=== PATIENT | male | born 1955 | race Caucasian/White ===

== ENCOUNTER 2017-03-28 14:07 | Observation (INO) ==
[2017-03-28] MEDS ORDERED: NITROGLYCERIN 0.4 MG SUBLINGUAL TABLET SL PRN ×2 (14:32→14:47)
[2017-03-28] MEDS ORDERED: SALINE FLUSH 10ml SYRINGE IVF PRN (14:32)
[2017-03-28] MEDS ORDERED: ASPIRIN 81 MG CHEWABLE TABLET PO ONE ×3 (14:32→14:47)
[2017-03-28] MEDS ORDERED: NS 1,000 ML IV ONE (14:47)
--- NOTE | 2017-03-28 15:04 | XRay Report ---
INDICATION: Upper abdominal and chest pain today PROCEDURE: CHEST 2-VIEWS UPRIGHT (PA & LAT) Encounter: Initial COMPARISON: March 03, 2009 FINDINGS: The lungs are clear without evidence of focal abnormal airspace opacity. There is no pleural effusion or pneumothorax. The heart size, mediastinal contours and pulmonary vascularity are stable. IMPRESSION: Stable chest without acute cardiopulmonary disease. .
[2017-03-28] MEDS ORDERED: HEPARIN 1,000unit/ml INJECTION 10ml IV ONE (15:09)
[2017-03-28] MEDS ORDERED: HEPARIN DRIP 20,000 UNIT/500 ML BAG IV SCH (15:11)
--- NOTE | 2017-03-28 15:20 | Emergency Department Report ---
Chest Pain HPI - General Chief Complaint: Chest Pain Stated Complaint: Cp Time Seen by Provider: 03/28/17 14:20 - History of Present Illness HPI narrative: 61-year-old gentleman presents with chest pain. Patient had onset of chest pain this morning after eating. He did change dosage on Entresto last night. He has a life vest in place due to poor ejection fraction. His initial cardiac event was greater than 20 years ago with an GA. He is being followed by Dr. Jackman for this. He's had some slight diaphoresis this morning, no actual shortness of breath. Chest pain as 6-8 out of 10 midsternal radiating in a band across the front of his chest. He is not certain if this is similar pain to his initial cardiac event. No nausea vomiting. - Related Data Home Medications Medication Instructions Recorded Confirmed Potassium Chloride 20 meq PO DAILY #0 06/21/10 03/28/17 Cyclobenzaprine HCl 10 mg PO PRN PRN #0 06/28/10 03/09/17 Furosemide 40 mg PO BID #0 06/29/10 03/12/17 Aspirin [Aspirin EC] 81 mg PO DAILY 03/09/17 03/12/17 Carvedilol [Coreg] 1 tab PO BIDWM 03/09/17 03/12/17 Metformin [Glucophage] 500 mg PO BID 03/09/17 03/28/17 SACUBITRIL/VALSARTAN 24/26mg 2 tab PO BID 03/09/17 03/28/17 [ENTRESTO 24/26mg] Nitroglycerin 0.4 mg PO Q5M PRN 03/28/17 03/28/17 Allergies Allergy/AdvReac Type Severity Reaction Status Date / Time amlodipine [From [facility]] Allergy Itching Verified 03/28/17 15:18 Review of Systems All systems: reviewed and negative except as stated PFSH Patient Stated Medical History Dental Problems Yes: partial Angina Yes Hypertension Yes Myocardial Infarction Yes: Diabetes Mellitus Type 2 Yes Osteoarthritis Yes Depression Yes: r/t heart attack - Social History Smoking status: Former smoker Physical Exam - Limitations Limitations: no limitations - General General appearance: alert, in no apparent distress - Normal Exams: Head:: Normocephalic without trauma Chest/Respirations:: Clear all [place]ley, with good airflow, and symmetry bilaterally Cardiovascular:: Regular rate and rhythm, without murmur or gallop, Pulses 2+ all extremities, capillary refill, <2 seconds all extremities Abdomen:: Bowel sounds positive, soft, non-tender, non-distended, no hepatosplenomegaly, masses or bruits noted Neurological:: Patient is alert, and oriented, cranial nerves, motor/sensory/ cerebellar, exams w/o gross deficits, to observation Psychiatric:: Patient exhibits, appropriate attention, emotion and affect Course Vital Signs Temperature 97.8 F 03/28/17 14:09 Pulse Rate 59 L 03/28/17 14:09 Respiratory Rate 18 03/28/17 14:09 Blood Pressure 119/64 03/28/17 14:09 Pulse Oximetry 97 03/28/17 14:09 Temperature 97.8 F 03/28/17 14:09 Pulse Rate 59 L 03/28/17 14:09 Respiratory Rate 18 03/28/17 14:09 Blood Pressure 119/64 03/28/17 14:09 Pulse Oximetry 97 03/28/17 14:09 Chest Pain - MDM Narrative Medical decision making narrative: CBC CMP appropriate. Troponin negative. EKG is questionable, Dr. Jackman reviewed the EKG and would like patient placed in observation with heparin drip to be followed and reevaluated. 60 units per kilogram initial bolus of heparin followed by 12 units per kilogram per hour. Repeat troponin is ordered. Patient stable at time of transfer. He did have aspirin 81 mg 4, nitroglycerin 1. Sublingual - Medical Records Data Attestation: I reviewed the patient's medical records. - Lab Data Attestation: I reviewed the patient's lab results. Result diagrams: 03/28/17 14:37 03/28/17 14:37 Lab Results 03/28/17 03/28/17 03/28/17 Range/Units 14:37 14:37 14:37 WBC 6.5 (4.5-11.0) T/MM3 RBC 4.39 L (4.50-5.90) M/MM3 Hgb 14.1 (13.5-17.5) GM/DL Hct 40.1 L (41-53) % MCV 91.3 (80-100) UM3 MCH 32.1 (26-34) UUG MCHC 35.2 (31-37) GM/DL RDW Std Deviation 42.0 (36.9-50.2) FL Plt Count 197 (130-400) T/MM3 MPV 9.9 (9.4-12.4) UM3 Immature Gran % (Auto) 0.3 (0.0-0.5) % Neut % (Auto) 48.5 (33-66) % Lymph % (Auto) 36.7 (23-45) % [place] % (Auto) 9.9 H (0-9.0) % Eos % (Auto) 3.2 (0-4) % Baso % (Auto) 1.4 (0-2) % Neut # 3.2 (1.8-7.7) T/MM3 Lymph # 2.4 (1-4.8) T/MM3 [place] # 0.7 (0-0.8) T/MM3 Eos # 0.2 (0-0.5) T/MM3 Baso # 0.1 (0-0.2) T/MM3 Abs Immat Gran (auto) 0.02 (0.00-0.03) T/MM3 Turbidity < 20 (0-20) Sodium 146 H (134-144) MEQ/L Potassium 4.0 (3.6-5) MEQ/L Chloride 106 (98-107) MEQ/L Carbon Dioxide 28 (22-30) MEQ/L Anion Gap 12 (5-15) MEQ/L BUN 13.0 (9-20) MG/DL Creatinine 0.7 L (0.8-1.5) MG/DL GFR Calculation 115 BUN/Creatinine Ratio 19 (6-26) RATIO Glucose 121 H (75-110) MG/DL Calculated Osmolality 282 H (261-280) MOSM/KG Calcium 9.6 (8.4-10.2) MG/DL Icterus Index < 2 (0-7) Troponin I < 0.012 Cancelled (0-0.12) ng/ml B-Natriuretic Peptide 117 Cancelled (0-175) pg/mL Lipase 522 H (23-300) U/L Specimen Hemolysis < 15 Cancelled (0-25) Digoxin < 0.4 L (0.8-2.0) NG/ML - Radiology Data Attestation: I reviewed the patient's radiology results. Disposition Clinical Impression: Chest pain, Ejection fraction < 50% Disposition: 02 To [facility] Condition: Stable Prescriptions: No Action Furosemide 40 mg PO BID #0 Aspirin [Aspirin EC] 81 mg PO DAILY Carvedilol [Coreg] 1 tab PO BIDWM Potassium Chloride 20 meq PO DAILY #0 Cyclobenzaprine HCl 10 mg PO PRN PRN #0 PRN Reason: Muscle Spasm Metformin [Glucophage] 500 mg PO BID SACUBITRIL/VALSARTAN 24/26mg [ENTRESTO 24/26mg] 2 tab PO BID Nitroglycerin 0.4 mg PO Q5M PRN PRN Reason: Chest Pain Referrals: Leonela Mccain DO [Family Provider] - Time of Disposition: 15:26 - Seen By: physician
[2017-03-28 16:07] VITALS: BMI 30.3
--- NOTE | 2017-03-28 17:12 | Cardiology History & Physical ---
History of Present Illness Chief complaint: chest pain HPI: Gary is a 61-year-old gentleman who is well known to Dr. Jackman with a history CAD with recent heart cath, Dilated cardiomyopathy with EF of no more than 20%, HTN, HLD and DM, type II who presented with chest pain. He reported onset of chest pain this morning after eating. He's had some slight diaphoresis this morning, no actual shortness of breath. Chest pain as 6-8 out of 10 midsternal radiating in a band across the front of his chest. He did change dosage on Entresto last night. He has a life vest in place. His initial cardiac event was greater than 20 years ago with an OH. He is being followed by Dr. Jackman for this. He is not certain if this is similar pain to his initial cardiac event. No nausea/ vomiting. Review of Systems - Constitutional Constitutional: Absent: chills, fever(s), weakness - EENMT Eyes: Absent: change in vision Balance: Absent: vertigo Mouth/Throat: Absent: sore throat - Cardiovascular Cardiovascular: Present: chest pain, dyspnea on exertion. Absent: palpitations , syncope - Respiratory Respiratory: Present: dyspnea - Gastrointestinal Gastrointestinal: Absent: diarrhea, nausea, vomiting - Genitourinary Genitourinary: Absent: dysuria - Integumentary/Breasts Integumentary: Absent: rash - Neurological Neurological: Absent: dizziness PFSH Patient Stated Medical History Dental Problems Yes: partial Angina Yes Hypertension Yes Myocardial Infarction Yes: Diabetes Mellitus Type 2 Yes Osteoarthritis Yes Depression Yes: r/t heart attack Systolic HF Yes: EF 20% COPD Yes Surgical History: Hernia repair Family History: Brother - CAD, OH Mother - OH Sister - OH - Social History Smoking status: Former smoker Substance use type: does not use Alcohol intake frequency: a few times a week Household members: spouse Current occupational status: disabled Current residence: Apartment/Private Home Medications Home Medications Medication Instructions Recorded Confirmed Type Potassium Chloride 20 meq PO DAILY #0 06/21/10 03/28/17 History Furosemide 40 mg PO BID #0 06/29/10 03/28/17 History Aspirin [Aspirin EC] 81 mg PO DAILY 03/09/17 03/28/17 History Carvedilol [Coreg] 25 mg PO BIDWM 03/09/17 03/28/17 History Metformin [Glucophage] 500 mg PO BID 03/09/17 03/28/17 History SACUBITRIL/VALSARTAN 24/26mg 2 tab PO BID 03/09/17 03/28/17 History [ENTRESTO 24/26mg] Atorvastatin Calcium 80 mg PO HS 03/28/17 03/28/17 History Nitroglycerin 0.4 mg PO Q5M PRN 03/28/17 03/28/17 History Warfarin Sodium 10 mg PO HS 03/28/17 03/28/17 History Allergies Allergy/AdvReac Type Severity Reaction Status Date / Time amlodipine [From [facility]] Allergy Itching Verified 03/28/17 16:24 Exam Vital signs: Temperature 97.8 F 03/28/17 14:09 Pulse Rate 54 L 03/28/17 16:05 Respiratory Rate 15 03/28/17 16:05 Blood Pressure 109/63 03/28/17 16:05 Pulse Oximetry 98 03/28/17 16:05 - Constitutional no acute distress, well nourished, cooperative - Routine HEENT Exam Head: Present: normocephalic ENT: Present: mucous membranes moist - Routine Neck Exam Absent: JVD, carotid bruit - Routine Chest/Breast/Axilla Exam Chest wall: Absent: tenderness - Routine Respiratory Exam Present: CTA bilaterally. Absent: rales, wheezes - Routine Cardiovascular Exam Present: no murmur, bradycardia. Absent: JVD - Routine Abdominal Exam Present: soft, normoactive bowel sounds - Routine Extremities Exam Present: no edema - Routine Skin Exam Present: intact, dry, warm - Routine Neurological Exam Present: alert, oriented X3 - Routine Psychiatric Exam Present: normal affect, normal thought process Results 03/28/17 14:37 03/28/17 14:37 Cardiac Enzymes 03/28/17 Range/Units 16:03 Troponin I < 0.012 (0-0.12) ng/ml Intake and Output 03/28/17 03/28/17 03/28/17 06:59 14:59 22:59 Intake Total 1000 / 1000 Balance 1000 / 1000 Intake: IV 1000 / 1000 Normal Saline 1,000 ml @ 1000 / 1000 1000 mls/hr IV .Q1H ONE Rx#:[id number] Other: Weight 205 lb 7.533 oz Patient Weight 03/29/17 06:59 Weight 205 lb 7.533 oz EKG interpretations - EKG EKG results cardiology: sinus rhythm EKG shows: bradycardia - Blocks, axis, hypertrophy, ST abn Repolarization changes or abnormalities: nonspecific abnormality, ST segment, and/or T wave - OH, pacemaker, normal Myocardial infarction: septal OH (old age or indeterminate), anterior OH (old age or indeterminate) Hospital Course This is a general summary of the patient's hospital course. For more details refer to the complete medical record. Time spent with patient: 25 - 35 minutes DVT Prophylaxis: Coumadin Assessment and Plan - Attestation Attestation Narrative: 04/03/17 07:58 Recommendation After examining the patient I agree with the above assessment. I am involved in the formulation of the patient's plan of care. - Assessment and Plan (1) Chest pain Status: Acute EKG with T wave changes from last EKG, indicating lateral ischemia. Troponin negative. Transfer to [facility] for consultation for CABG surgery (2) Atherosclerotic heart disease of [place] coronary artery without angina pectoris Status: Acute Recent heart cath : 03/12/17 CORONARY ANGIOGRAPHY Left main was calcified with about 30% stenosis. Left anterior descending artery was heavily calcified and occluded after the first diagonal. First diagonal had about 60% ostial stenosis. Left circumflex artery was dominant with about 50% stenosis in the ostium of the second marginal. First marginal was free of significant lesions. Right coronary artery was nondominant with about 70% stenosis with collaterals going from the right coronary to LAD territory. The patient tolerated the procedure well with no complications. IMPRESSION 1. Severe global hypokinesia with ejection fraction no more than 20%. 2. Calcification of the pericardium 3. Coronary artery disease as described above with occlusion of the LAD. PLAN Since the patient's LAD territory has collaterals coming from the right and with severe LV dysfunction, I will continue medical management. If medical management fails, then one might consider bypass versus referral for transplant. (3) Dilated cardiomyopathy Status: Acute Entresto increased 03/27/17 to 49/51mg BID (4) Essential (primary) hypertension Status: Chronic well controlled on medical therapy, continue current therapy, (5) Mixed hyperlipidemia Status: Chronic Takes Atorvastatin, PCP manages (6) Type 2 diabetes mellitus without complications Status: Chronic PCP manages Sepsis Assessment - Evaluation Sepsis screening result: No Definite Risk
--- NOTE | 2017-03-28 17:59 | Discharge Instructions ---
<Anna Garcia - Last Filed: 03/28/17 17:58> Discharge Plan - Med Rec/Dispo [facility] Instructions: Chest Pain (DC) Prescriptions: Continue Furosemide 40 mg PO BID #0 Aspirin [Aspirin EC] 81 mg PO DAILY Carvedilol [Coreg] 25 mg PO BIDWM Atorvastatin Calcium 80 mg PO HS Warfarin Sodium 10 mg PO HS Potassium Chloride 20 meq PO DAILY #0 Metformin [Glucophage] 500 mg PO BID SACUBITRIL/VALSARTAN 24/26mg [ENTRESTO 24/26mg] 2 tab PO BID Nitroglycerin 0.4 mg PO Q5M PRN PRN Reason: Chest Pain - Disposition 02 To [facility] Acute Care <Sandor Jackman - Last Filed: 04/03/17 08:39> Discharge Plan - Med Rec/Dispo - Attestation Attestation Narrative: 04/03/17 08:39 Recommendation After examining the patient I agree with the above assessment. I am involved in the formulation of the patient's plan of care.
[2017-03-28 19:24] VITALS: TEMP 98.3
[2017-03-28 22:32] VITALS: BP 106/59; PULSE 59; RESP 19; O2SAT 96
== END 2017-03-28 20:55 | disposition short-term general hospital (02) ==
LOC: CCU 14:07 → ED 14:07 → CCU 15:55
PROVIDERS: ADMIT Internal Medicine Cardiovascular Disease; ATTEND Internal Medicine Cardiovascular Disease